=== PATIENT | male | born 1990 | race Two or more races ===

== ENCOUNTER 2018-03-24 17:22 | Inpatient (IN) | payer BC ==
[2018-03-24 18:50] VITALS: BMI 22.4
--- NOTE | 2018-03-24 19:09 | HP ---
"COWS - Scale Resting Pulse: 4= [place] > 121 Sweatin= Beads of Sweat on Face Restless Observation: 3= Extraneous Movement Pupil Size: 5= Only Rim of Iris Seen (Pupils = 10 mm) Bone or Joint Aches: 2= Severe Diffuse Aches Runny Nose/ Eye Tearin= Nasal Congestion GI Upset > 30mins: 2= Nausea/Diarrhea (No diarrhea) Tremor Observation: 4= Gross Tremor/Twitching Yawning Observation: 0= None Anxiety or Irritability: 1=Feels Anxious/Irritable Goose Flesh Skin: 0=Smooth Skin COWS Score: 25 CIWA Score - Admission Criteria OASAS Guidelines: Admission for Medically Managed Detox: Requires at least one of the followin. CIWA greater than 12 2. Seizures within the past 24 hours 3. Delirium tremens within the past 24 hours 4. Hallucinations within the past 24 hours 5. Acute intervention needed for co occurring medical disorder 6. Acute intervention needed for co occurring psychiatric disorder 7. Severe withdrawal that cannot be handled at a lower level of care (continued vomiting, continued diarrhea, abnormal vital signs) requiring intravenous medication and/or fluids 8. Admission ROS [facility] - [facility] Chief Complaint: Having bad opiate withdrawals. Allergies/Adverse Reactions: Allergies Allergy/AdvReac Type Severity Reaction Status Date / Time No Known Allergies Allergy Verified 02/28/15 16:35 History of Present Illness: Here for oxycontin detox and c/o experiencing bad withdrawal symptoms. Stated taking oxy 2 years at age 26. Nicotine use began at age 23. Seen at [facility] ER, for Hallucinations, on03/23 and given methadone , Ativan, Atrovent, albuterol, Risperidone, catapress, Haldol, Benadryl, Rocephin, Zithromax and imodium. Discharged 03/24. Discharge papers w/o list of home medications. Denies seizures or overdose. Longest length of sobriety 3 days. Hx: Asthma. Denies other significant PMH/PSH States is taking Risperidone and cogentin. Denies depression. Denies thoughts of harming self or others. Denies current hallucination. No recent visit to a provider visit. Search Terms: Christian Barraza, 1990 Search Date: 03/24/2018 07:00:18 PM The Drug Utilization Report below displays all of the controlled substance prescriptions, if any, that your patient has filled in the last twelve months. The information displayed on this report is compiled from pharmacy submissions to the Department, and accurately reflects the information as submitted by the pharmacies. This report was requested by: Angelia Alvarez | Reference #: [id number] There are no results for the search terms that you entered. Exam Limitations: No Limitations - Ebola screening Have you traveled outside of the country in the last 21 days: No (N) Have you had contact with anyone from an Ebola affected area: No Have you been sick,other than usual withdrawal symptoms: No Do you have a fever: No - Review of Systems Constitutional: Diaphoresis EENT: reports: Nose Congestion Respiratory: reports: Wheezing Cardiac: reports: No Symptoms Reported GI: reports: Nausea, Vomiting : reports: No Symptoms Reported Musculoskeletal: reports: Other (Body aches all over) Integumentary: reports: No Symptoms Reported Neuro: reports: Tremors Endocrine: reports: No Symptoms Reported Hematology: reports: No Symptoms Reported Psychiatric: reports: Judgement Intact, Orientated x3, Agitated, Anxious Patient History - Patient Medical History Hx Anemia: No Hx Asthma: No Hx Chronic Obstructive Pulmonary Disease (COPD): No Hx Cancer: No Hx Cardiac Disorders: No Hx Congestive Heart Failure: No Hx Hypertension: No Hx Hypercholesterolemia: No Hx Pacemaker: No HX Cerebrovascular Accident: No Hx Seizures: No Hx Dementia: No Hx Diabetes: No Hx Gastrointestinal Disorders: No Hx Liver Disease: No Hx Genitourinary Disorders: No Hx Sexually Transmitted Disorders: No Hx Renal Disease (ESRD): No Hx Thyroid Disease: No Hx Human Immunodeficiency Virus (HIV): No (negative) Hx Hepatitis C: No Hx Depression: Yes Hx Suicide Attempt: No Hx Schizophrenia: No - Patient Surgical History Past Surgical History: No Hx Neurologic Surgery: No Hx Cataract Extraction: No Hx Cardiac Surgery: No Hx Lung Surgery: No Hx Breast Surgery: No Hx Breast Biopsy: No Hx Abdominal Surgery: No Hx Appendectomy: No Hx Cholecystectomy: No Hx Genitourinary Surgery: No Hx Section: No Hx Orthopedic Surgery: No Anesthesia Reaction: No - PPD History Previous Implant?: Yes Documented Results: Negative w/proof Implanted On Prior R Admission?: Yes Date: 03/02/15 PPD to be Administered?: Yes - Smoking Cessation Smoking history: Current every day smoker Have you smoked in the past 12 months: Yes Aproximately how many cigarettes per day: 8 Hx Chewing Tobacco Use: No Initiated information on smoking cessation: Yes 'Breaking Loose' booklet given: 03/24/18 - Substance & Tx. History Hx Substance Use: Yes Substance Use Type: Opiates Hx Substance Use Treatment: Yes (detox, rehab) - Substances Abused Oxycontin Route: Oral Frequency: Daily Amount used: 3/30MG Age of first use: 26 Date of Last Use: 03/24/18 Admission Physical Exam [facility] - Vital Signs Vital Signs: Vital Signs - 24 hr 03/24/18 18:48 Temperature 96.2 F L Pulse Rate 125 H Respiratory 18 Rate Blood Pressure 153/78 - Physical General Appearance: Yes: Moderate Distress, Tremorous, Sweating, Anxious HEENTM: Yes: EOMI, Hearing grossly Normal, Normocephalic, IONA (Pupils = 10 mm) , Pharynx Normal, Nasal Congestion Respiratory: Yes: Chest Non-Tender, Lungs Clear, Normal Breath Sounds, No Respiratory Distress Neck: Yes: No masses,lesions,Nodules, Supple Breast: Yes: Breast Exam Deferred Cardiology: Yes: Regular Rhythm, S1, S2, Tachycardia Abdominal: Yes: Soft, Increased Bowel Sounds, Tenderness (Mid abd tenderness upon palpation. No guarding. 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, Fully Oriented, Alert, Motor Strength 5/5 Integumentary: Yes: Normal Color, Dry, Warm Lymphatic: Yes: Within Normal Limits - Diagnostic (1) Opioid dependence with withdrawal Current Visit: Yes Status: Acute Comment: COWS (2) Nicotine dependence Current Visit: Yes Status: Chronic Qualifiers: Nicotine product type: cigarettes Substance use status: uncomplicated Qualified Code(s): F17.210 - Nicotine dependence, cigarettes, uncomplicated (3) Asthma Current Visit: Yes Status: Chronic Qualifiers: Asthma severity: unspecified severity Asthma persistence: intermittent Asthma complication type: unspecified Qualified Code(s): J45.20 - Mild intermittent asthma, uncomplicated Cleared for Admission [facility] - Detox or Rehab [facility] Level of Care: Medically Managed Detox Regimen/Protocol: Methadone [facility]HS Breath Alcohol Content Breath Alcohol Content: 0 Urine Drug Screen - Results Drug Screen Negative: No Urine Drug Screen Results: OPI-Opiates, BZO-Benzodiazepines, MTD-Methadone"
[2018-03-24] MEDS ORDERED: ACETAMINOPHEN 325 MG TABLET (FP) PO PRN (19:39)
[2018-03-24] MEDS ORDERED: MAGNESIUM CITRATE 300 ML BOTTLE PO PRN (19:39)
[2018-03-24] MEDS ORDERED: LOPERAMIDE HCL 2 MG CAPSULE PO PRN (19:39)
[2018-03-24] MEDS ORDERED: MAGNESIUM HYDROX 2400MG/30ML ORAL SUSPENSION 30 ML CUP PO PRN (19:39)
[2018-03-24] MEDS ORDERED: MAG HYDROX/AL HYDROX/SIMETH 30 ML UNIT-DOSE CUP PO PRN (19:39)
[2018-03-24] MEDS ORDERED: IBUPROFEN 400 MG TABLET (FP) PO PRN (19:39)
[2018-03-24] MEDS ORDERED: MENTHOL/PHENOL 1 EACH UD MM PRN (19:39)
[2018-03-24] MEDS ORDERED: NICOTINE POLACRILEX 2 MG GUM BUC PRN (19:42)
[2018-03-24] MEDS ORDERED: METHADONE HCL 10 MG TABLET (FOR DETOX USE ONLY) PO ONE ×2 (20:30→23:00)
[2018-03-24] MEDS: diazePAM 5 MG TABLET PO PRN (21:08)
[2018-03-24] MEDS: THIAMINE HCL 100 MG TABLET (FP) PO SCH (21:50)
[2018-03-24] MEDS ORDERED: MELATONIN 5 MG TABLETS PO PRN (22:00)
[2018-03-24] MEDS ORDERED: ALBUTEROL SO4 8 GM HFA INHALER IH ONE (23:51)
[2018-03-24] MEDS: ALBUTEROL SO4 8 GM HFA INHALER IH PRN (23:55)
[2018-03-25] MEDS ORDERED: METHADONE HCL 10 MG TABLET (FOR DETOX USE ONLY) PO ONE (10:00)
[2018-03-25 10:46] LABS: ALBUMIN 3.6 g/dl (3.4-5.0); ALK PHOS 72 U/L (45-117); ANION GAP 9 MMOL/L (8-16); BILIRUBIN,TOTAL 0.5 mg/dL (0.2-1); BLOOD UREA NITROGEN 30 mg/dL (7-18); CALCIUM 9.4 mg/dL (8.5-10.1); CHLORIDE 103 mmol/L (98-107); CO2 25 mmol/L (21-32); GLUCOSE,RANDOM 112 mg/dL (74-106); HEMOGLOBIN 14.2 GM/dL (11.7-16.9); POTASSIUM 4.2 mmol/L (3.5-5.1); SGOT/AST 13 U/L (15-37); SGPT/ALT 19 U/L (13-61); SODIUM 137 mmol/L (136-145); TOT PROT 7.1 g/dl (6.4-8.2)
[2018-03-25 10:52] LABS: HEMATOCRIT 44.6 % (35.4-49); MCH 28.4 pg (25.7-33.7); MCHC 31.9 g/dl (32.0-35.9); PLATELET COUNT 297 K/MM3 (134-434); RBC 5.01 M/mm3 (4.00-5.60); RDW 15.6 % (11.9-15.9); WHITE BLOOD COUNT 11.1 K/mm3 (4.0-10.0)
[2018-03-25] MEDS: diazePAM 5 MG TABLET PO PRN ×3 (10:52→22:34)
[2018-03-25] MEDS: PRENATAL VITAMINS W/ FOLIC ACID TABLET (FP) PO SCH (10:52)
[2018-03-25] MEDS: NICOTINE 14 MG/24 HOURS TOPICAL PATCH TD SCH (10:54)
--- NOTE | 2018-03-25 11:39 | PN ---
[facility] COWS - Scale Resting Pulse: 1= [place] 81-100 Sweatin=Flushed/Facial Moisture Restless Observation: 1= Difficult to Sit Still Pupil Size: 1= Pupils >than Normal Bone or Joint Aches: 2= Severe Diffuse Aches Runny Nose/ Eye Tearin= Nasal Congestion GI Upset > 30mins: 2= Nausea/Diarrhea Tremor Observation of Outstretched Hands: 2= Slight Tremor Visible Yawning Observation: 0= None Anxiety or Irritability: 2=Irritable/Anxious Goose Flesh Skin: 0=Smooth Skin COWS Score: 14 BHS Progress Note (SOAP) Subjective: Sweats, chills, interrupted sleep, irritability Objective: 03/25/18 11:37 Vital Signs Temperature 96.3 F L 03/25/18 09:58 Pulse Rate 107 H 03/25/18 09:58 Respiratory Rate 18 03/25/18 09:58 Blood Pressure 135/95 03/25/18 09:58 O2 Sat by Pulse Oximetry (%) Laboratory Last Values WBC 11.1 K/mm3 (4.0-10.0) H 03/25/18 07:40 RBC 5.01 M/mm3 (4.00-5.60) 03/25/18 07:40 Hgb 14.2 GM/dL (11.7-16.9) 03/25/18 07:40 Hct 44.6 % (35.4-49) 03/25/18 07:40 MCV 89.0 fl (80-96) 03/25/18 07:40 MCH 28.4 pg (25.7-33.7) 03/25/18 07:40 MCHC 31.9 g/dl (32.0-35.9) L 03/25/18 07:40 RDW 15.6 % (11.9-15.9) D 03/25/18 07:40 Plt Count 297 K/MM3 (134-434) D 03/25/18 07:40 MPV 10.0 fl (7.5-11.1) 03/25/18 07:40 Sodium 137 mmol/L (136-145) 03/25/18 07:40 Potassium 4.2 mmol/L (3.5-5.1) 03/25/18 07:40 Chloride 103 mmol/L (98-107) 03/25/18 07:40 Carbon Dioxide 25 mmol/L (21-32) 03/25/18 07:40 Anion Gap 9 MMOL/L (8-16) 03/25/18 07:40 BUN 30 mg/dL (7-18) H 03/25/18 07:40 Creatinine 1.0 mg/dL (0.55-1.3) 03/25/18 07:40 Creat Clearance w eGFR > 60 (>60) 03/25/18 07:40 Random Glucose 112 mg/dL (74-106) H 03/25/18 07:40 Calcium 9.4 mg/dL (8.5-10.1) 03/25/18 07:40 Total Bilirubin 0.5 mg/dL (0.2-1) 03/25/18 07:40 AST 13 U/L (15-37) L 03/25/18 07:40 ALT 19 U/L (13-61) 03/25/18 07:40 Alkaline Phosphatase 72 U/L (45-117) 03/25/18 07:40 Total Protein 7.1 g/dl (6.4-8.2) 03/25/18 07:40 Albumin 3.6 g/dl (3.4-5.0) 03/25/18 07:40 Labs noted; elevated BUN, creatinine within normal limits Assessment: 03/25/18 11:38 Withdrawal sx Elevated BUN probably due to dehydration Plan: Continue detox Encourage oral fluid intake
[2018-03-25] MEDS: THIAMINE HCL 100 MG TABLET (FP) PO SCH (22:34)
[2018-03-26] MEDS: diazePAM 5 MG TABLET PO PRN ×2 (03:44→07:53)
[2018-03-26 09:51] VITALS: BP 111/69; PULSE 104; TEMP 97.6
[2018-03-26] MEDS ORDERED: METHADONE HCL 5 MG TABLET (FOR DETOX USE ONLY) PO ONE (10:00)
[2018-03-26] MEDS: PRENATAL VITAMINS W/ FOLIC ACID TABLET (FP) PO SCH (10:27)
[2018-03-26] MEDS: NICOTINE 14 MG/24 HOURS TOPICAL PATCH TD SCH (10:28)
[2018-03-26] MEDS: ALBUTEROL SO4 8 GM HFA INHALER IH PRN (10:30)
--- NOTE | 2018-03-26 13:34 | DS ---
[facility] Detox Discharge Summary Admission Date: 03/24/18 Discharge Date: 03/26/18 - History Present History: Opioid Dependence Additional Comments: Patient demanded to leave AMA despite encouragement from staff to complete detox. Patient is A, A, Ox3, in nad, vss, ambulatory. Patient instructed to call 911 if feeling sick or any withdrawal symptoms and to see his PCP within 3 days. Patient stated that he is feeling better now and wants to leave and that he will not be using any illicit substances after he left. Pertinent Past History: Opioid dependence Nicotine dependence Asthma - Physical Exam Results Vital Signs: Vital Signs Temperature 97.6 F 03/26/18 09:51 Pulse Rate 104 H 03/26/18 09:51 Respiratory Rate 18 03/26/18 09:51 Blood Pressure 111/69 03/26/18 09:51 O2 Sat by Pulse Oximetry (%) Pertinent Admission Physical Exam Findings: Withdrawal symptoms Laboratory Tests 03/25/18 03/25/18 03/25/18 07:40 07:40 07:40 WBC 11.1 H RBC 5.01 Hgb 14.2 Hct 44.6 MCV 89.0 MCH 28.4 MCHC 31.9 L RDW 15.6 D Plt Count 297 D MPV 10.0 Sodium 137 Potassium 4.2 Chloride 103 Carbon Dioxide 25 Anion Gap 9 BUN 30 H Creatinine 1.0 Creat Clearance w eGFR > 60 Random Glucose 112 H Calcium 9.4 Total Bilirubin 0.5 AST 13 L ALT 19 Alkaline Phosphatase 72 Total Protein 7.1 Albumin 3.6 RPR Titer Nonreactive Labs reviewed: wbc 11.1, bun 30; encouraged PO water intake and to see his PCP within 3 days - Medication Discharge Medications: Ambulatory Orders Benztropine Mesylate [Cogentin -] 1 mg PO BID 02/28/15 Risperidone [Risperdal] 2 mg PO HS 02/28/15 Benztropine Mesylate [Cogentin -] 1 mg PO BID #60 tablet 03/24/15 Risperidone [Risperdal -] 2 mg PO HS #60 tablet 03/24/15 - Diagnosis (1) Opioid dependence with withdrawal Status: Acute (2) Asthma Status: Chronic Qualifiers: Asthma severity: unspecified severity Asthma persistence: intermittent Asthma complication type: unspecified Qualified Code(s): J45.20 - Mild intermittent asthma, uncomplicated (3) Nicotine dependence Status: Chronic Qualifiers: Nicotine product type: cigarettes Substance use status: uncomplicated Qualified Code(s): F17.210 - Nicotine dependence, cigarettes, uncomplicated (4) Azotemia Status: Acute (5) Leukocytosis Status: Acute - AMA Did Patient Leave Against Medical Advice: Yes (Instructed to call 911 if feeling sick or any withdrawal symptoms)
[2018-03-27] MEDS ORDERED: METHADONE HCL 5 MG TABLET (FOR DETOX USE ONLY) PO ONE (10:00)
[2018-03-28] MEDS ORDERED: METHADONE HCL 10 MG TABLET (FOR DETOX USE ONLY) PO ONE (10:00)
[2018-03-29] MEDS ORDERED: METHADONE HCL 5 MG TABLET (FOR DETOX USE ONLY) PO ONE (06:00)
== END 2018-03-26 11:05 | disposition left against medical advice (07) | DRG 770 ==
LOC: YASAS 17:22 → Y3N 20:01
PROC: HZ2ZZZZ Detoxification Services for Substance Abuse Treatment (ICD-10-PCS; principal; 2018-03-24)
DX: F11.23 Opioid dependence with withdrawal (principal); F17.210 Nicotine dependence, cigarettes, uncomplicated; F41.1 Generalized anxiety disorder; F41.9 Anxiety disorder, unspecified; J45.20 Mild intermittent asthma, uncomplicated; R79.89 Other specified abnormal findings of blood chemistry; R00.0 Tachycardia, unspecified; D72.829 Elevated white blood cell count, unspecified
CPT/HCPCS: 36415; 80053; 85027; 86593

== ENCOUNTER 2019-01-20 08:53 | Inpatient (IN) | payer BC ==
[2019-01-20 09:37] VITALS: BMI 25.2
--- NOTE | 2019-01-20 10:09 | HP ---
COWS - Scale Resting Pulse: 1= [place] 81-100 Sweatin= Chills/Flushing Restless Observation: 1= Difficult to Sit Still Pupil Size: 0= Normal to Room Light Bone or Joint Aches: 2= Severe Diffuse Aches Runny Nose/ Eye Tearin= Runny Nose/Eyes GI Upset > 30mins: 2= Nausea/Diarrhea Tremor Observation: 2= Slight Tremor Visible Yawning Observation: 1= 1-2x During Session Anxiety or Irritability: 1=Feels Anxious/Irritable Goose Flesh Skin: 3=Piloerection COWS Score: 16 CIWA Score - Admission Criteria OASAS Guidelines: Admission for Medically Managed Detox: Requires at least one of the followin. CIWA greater than 12 2. Seizures within the past 24 hours 3. Delirium tremens within the past 24 hours 4. Hallucinations within the past 24 hours 5. Acute intervention needed for co occurring medical disorder 6. Acute intervention needed for co occurring psychiatric disorder 7. Severe withdrawal that cannot be handled at a lower level of care (continued vomiting, continued diarrhea, abnormal vital signs) requiring intravenous medication and/or fluids 8. Admitting History and Physical - Smoking History Smoking history: Current every day smoker Have you smoked in the past 12 months: Yes Aproximately how many cigarettes per day: 8 - Alcohol/Substance Use Hx Alcohol Use: No Admission ROS S - HPI Chief Complaint: "I am here so I can get clean from withdrawal" Allergies/Adverse Reactions: Allergies Allergy/AdvReac Type Severity Reaction Status Date / Time No Known Allergies Allergy Verified 01/20/19 09:29 History of Present Illness: 28 year old male with opiate dependence presents for detox. His last treatment was in March of last year, he denies further treatments. Exam Limitations: No Limitations - Ebola screening Have you traveled outside of the country in the last 21 days: No Have you had contact with anyone from an Ebola affected area: No Have you been sick,other than usual withdrawal symptoms: No Do you have a fever: No - Review of Systems Constitutional: Chills, Loss of Appetite, Changes in sleep, Unintentional Wgt. Loss EENT: reports: Nose Congestion Respiratory: reports: Cough, Shortness of Breath (sometimes) Cardiac: reports: No Symptoms Reported GI: reports: Poor Appetite, Abdominal cramping : reports: No Symptoms Reported Musculoskeletal: reports: Back Pain, Joint Pain, Muscle Pain, Muscle Weakness Integumentary: reports: No Symptoms Reported Neuro: reports: Tremors, Weakness Endocrine: reports: No Symptoms Reported Hematology: reports: No Symptoms Reported Psychiatric: reports: Anxious Other Systems: Reviewed and Negative Patient History - Patient Medical History Hx Anemia: No Hx Asthma: Yes Hx Chronic Obstructive Pulmonary Disease (COPD): No Hx Cancer: No Hx Cardiac Disorders: No Hx Congestive Heart Failure: No Hx Hypertension: No Hx Hypercholesterolemia: No Hx Pacemaker: No HX Cerebrovascular Accident: No Hx Seizures: No Hx Dementia: No Hx Diabetes: No Hx Gastrointestinal Disorders: No Hx Liver Disease: No Hx Genitourinary Disorders: No Hx Sexually Transmitted Disorders: No Hx Renal Disease (ESRD): No Hx Thyroid Disease: No Hx Human Immunodeficiency Virus (HIV): No Hx Hepatitis C: No Hx Depression: No Hx Suicide Attempt: No Hx Bipolar Disorder: No Hx Schizophrenia: No - Patient Surgical History Past Surgical History: No - PPD History Previous Implant?: Yes Documented Results: Negative w/proof Implanted On Prior R Admission?: Yes Date: 03/02/15 PPD to be Administered?: Yes - Smoking Cessation Smoking history: Current every day smoker Have you smoked in the past 12 months: Yes Aproximately how many cigarettes per day: 10 Hx Chewing Tobacco Use: No Initiated information on smoking cessation: Yes 'Breaking Loose' booklet given: 01/20/19 - Substances abused Cocaine Substance route: Inhalation Frequency: Daily Amount used: 3 bags Age of first use: 16 Date of last use: 01/19/19 Other Other (specify): percocet Substance route: Oral Frequency: Daily Amount used: 3 pills Age of first use: 16 Date of last use: 01/19/19 Admission Physical Exam [facility] - Vital Signs Vital Signs: Vital Signs - 24 hr 01/20/19 09:32 Temperature 98.2 F Pulse Rate 95 H Respiratory 20 Rate Blood Pressure 146/98 - Physical General Appearance: Yes: No Apparent Distress HEENTM: Yes: Hearing grossly Normal, Normal ENT Inspection, Normocephalic, Normal Voice, IONA, Nasal Congestion Respiratory: Yes: Chest Non-Tender, Lungs Clear, No Respiratory Distress, No Accessory Muscle Use Neck: Yes: No masses,lesions,Nodules, Supple Breast: Yes: Breast Exam Deferred Cardiology: Yes: Regular Rhythm, Tachycardia Abdominal: Yes: Normal Bowel Sounds, Soft Genitourinary: Yes: Within Normal Limits Back: Yes: Normal Inspection Extremities: Yes: Normal Capillary Refill, Tremors 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, Fully Oriented, Alert, Normal Mood/ Affect, Normal Response Integumentary: Yes: Clammy Lymphatic: Yes: Within Normal Limits - Diagnostic (1) Opioid dependence with withdrawal Current Visit: Yes Status: Acute Comment: COWS (2) Asthma Current Visit: No Status: Chronic Qualifiers: Asthma severity: unspecified severity Asthma persistence: intermittent Asthma complication type: unspecified Qualified Code(s): J45.20 - Mild intermittent asthma, uncomplicated (3) Nicotine dependence Current Visit: Yes Status: Acute Qualifiers: Nicotine product type: cigarettes Substance use status: uncomplicated Qualified Code(s): F17.210 - Nicotine dependence, cigarettes, uncomplicated (4) SUKHDEEP (generalized anxiety disorder) Current Visit: Yes Status: Chronic (5) Cocaine abuse Current Visit: Yes Status: Acute Cleared for Admission [facility] - Detox or Rehab [facility] Level of Care: Medically Managed Detox Regimen/Protocol: Methadone Claeared for Rehab Admission: No Inpatient Rehab Admission - Rehab Decision to Admit Inpatient rehab admission?: No
[2019-01-20] MEDS ORDERED: MAG HYDROX/AL HYDROX/SIMETH 30 ML UNIT-DOSE CUP PO PRN (10:15)
[2019-01-20] MEDS ORDERED: NALOXONE HCL 0.4 MG/ML VIAL IM PRN (10:15)
[2019-01-20] MEDS ORDERED: MAGNESIUM CITRATE 300 ML BOTTLE PO PRN (10:15)
[2019-01-20] MEDS ORDERED: P-EPHED 60MG/TRIPROLIDI 2.5MG TABLET PO PRN (10:15)
[2019-01-20] MEDS ORDERED: IBUPROFEN 400 MG TABLET (FP) PO PRN (10:15)
[2019-01-20] MEDS ORDERED: MAGNESIUM HYDROX 2400MG/30ML ORAL SUSPENSION 30 ML CUP PO PRN (10:15)
[2019-01-20] MEDS ORDERED: ONDANSETRON *ODT* 4 MG TABLET SL PRN (10:15)
[2019-01-20] MEDS ORDERED: cloNIDine HCL 0.1 MG TABLET PO PRN (10:15)
[2019-01-20] MEDS ORDERED: MENTHOL/PHENOL 1 EACH UD MM PRN (10:15)
[2019-01-20] MEDS ORDERED: ACETAMINOPHEN 325 MG TABLET (FP) PO PRN ×2 (10:15)
[2019-01-20] MEDS ORDERED: NICOTINE POLACRILEX 2 MG GUM BUC PRN (10:15)
[2019-01-20] MEDS ORDERED: METHADONE HCL 10 MG TABLET (FOR DETOX USE ONLY) PO ONE (10:45)
[2019-01-20] MEDS: NICOTINE 7 MG/24 HOURS TOPICAL PATCH TD SCH (11:14)
[2019-01-20] MEDS ORDERED: FLU VACCINE QUAD 60 MCG/0.5 ML (MDV 19-20) IM ONE (12:00)
[2019-01-20] MEDS: METHOCARBAMOL 500 MG TABLET PO PRN (16:51)
[2019-01-20] MEDS: THIAMINE HCL 100 MG TABLET (FP) PO SCH (21:53)
[2019-01-20] MEDS: MELATONIN 5 MG TABLETS PO PRN (21:53)
[2019-01-20] MEDS: hydrOXYzine PAMOATE 50 MG CAPSULE (FP) PO PRN (21:53)
--- NOTE | 2019-01-21 07:34 | CONSULT ---
[facility] Psychiatric Consult - Data Date of interview: 01/21/19 Admission source: [facility] Identifying data: Patient is a 28 year old single male, without children, unemployed, and currently homeless. This is one of multiple admissions for patient. Patient admitted to for cocaine and opiate dependence. Substance Abuse History: Smoking Cessation. Smoking history: Current every day smoker. Have you smoked in the past 12 months: Yes. Aproximately how many cigarettes per day: 10. Hx Chewing Tobacco Use: No. Initiated information on smoking cessation: Yes. 'Breaking Loose' booklet given: 01/20/19. - Substances abused. Cocaine. Substance route: Inhalation. Frequency: Daily. Amount used: 3 bags. Age of first use: 16. Date of last use: . Other. Other (specify): percocet. Substance route: Oral. Frequency: Daily. Amount used: 3 pills. Age of first use: 16. Date of last use: 01/19/19 Medical History: Asthma Psychiatric History: Patient's first psychiatric contact was at 5 years of age due to hyperactivity and was treated with Ritalin. Mr. Barraza reports history of multiple psychiatric hospitalizations, most recently three months ago at [facility] due to auditory hallucinations. Before his admission to [facility] patient stated that the voices would tell him, " stay away from those people because they are dangerous." Patient denies command auditory hallucinations to hurt self or others. Patient is also known to [facility] and [facility]. Patient unsure of his diagnosis and past medication regiman but as per previous notes patient has a history of schizophrenia and was prescribed risperdal 2mg HS + Cogentin 1mg BID while in rehab in 2014. External records show a prescription of risperdal 2mg BID + Cogentin 1mg BID + Depakote 500mg BID on 02/21/18. Patient is noncompliant to follow up care. Patient observed to be staring blankly at manual writer before answering questions (possibly internally preoccupied although denied by patient) . Patient denies history of suicide attempt. At present, patient denies auditory/visual hallucinations, paranoid ideation, and suicide/homicidal ideation. Physical/Sexual Abuse/Trauma History: denies. Mental Status Exam - Mental Status Exam Alert and Oriented to: Time, Place, Person Cognitive Function: Good Patient Appearance: Unkempt Mood: Withdrawn Affect: Flat, Constricted Patient Behavior: Cooperative Speech Pattern: Clear Voice Loudness: Normal Thought Process: Thought Blocking (Possibly internally preoccupied but denied by patient) Thought Disorder: Not Present Hallucinations: Denies Suicidal Ideation: Denies Homicidal Ideation: Denies Insight/Judgement: Poor Sleep: Poorly Appetite: Fair Muscle strength/Tone: Normal Gait/Station: Normal Psychiatric Findings - Problem List ([place] 1, 2,3) (1) Cocaine abuse Current Visit: Yes Status: Acute (2) Nicotine dependence Current Visit: Yes Status: Resolved Qualifiers: Nicotine product type: cigarettes Substance use status: uncomplicated Qualified Code(s): F17.210 - Nicotine dependence, cigarettes, uncomplicated (3) Opioid dependence with withdrawal Current Visit: Yes Status: Acute Comment: COWS (4) Schizophrenia Current Visit: Yes Status: Chronic - Initial Treatment Plan Initial Treatment Plan: Psychoeducation provided. Detoxification in progress. Will order Risperdal 1mg BID + Cogentin 0.5 mg BID. Benefits and side effects discussed. Verbal consent given.
[2019-01-21] MEDS ORDERED: METHADONE HCL 5 MG TABLET (FOR DETOX USE ONLY) PO ONE (10:00)
--- NOTE | 2019-01-21 10:13 | PN ---
[facility] COWS - Scale Resting Pulse: 0= [place] 80 or Below Sweatin= Chills/Flushing Restless Observation: 1= Difficult to Sit Still Pupil Size: 0= Normal to Room Light Bone or Joint Aches: 2= Severe Diffuse Aches Runny Nose/ Eye Tearin= None GI Upset > 30mins: 2= Nausea/Diarrhea Tremor Observation of Outstretched Hands: 2= Slight Tremor Visible Yawning Observation: 1= 1-2x During Session Anxiety or Irritability: 2=Irritable/Anxious Goose Flesh Skin: 0=Smooth Skin COWS Score: 11 S Progress Note (SOAP) Subjective: c/o muscle aches, diarrhea, sweats, headache, anxiety, and irritability. Objective: 01/21/19 10:12 Vital Signs 01/21/19 01/21/19 06:17 09:19 Temperature 96.7 F L 96.5 F L Pulse Rate 58 L 79 Respiratory 16 18 Rate Blood Pressure 111/63 121/91 Labs pending. Assessment: 01/21/19 10:13 AOX3, in no respiratory distress. Full ROM, ambulating in the unit. Withdrawal symptoms. Plan: continue detox.
[2019-01-21 10:23] LABS: ALBUMIN 3.7 g/dl (3.4-5.0); BILIRUBIN,TOTAL 0.3 mg/dL (0.2-1); BLOOD UREA NITROGEN 9.3 mg/dL (7-18); CALCIUM 9.1 mg/dL (8.5-10.1); CREATININE 0.7 mg/dL (0.55-1.3); POTASSIUM 4.2 mmol/L (3.5-5.1); TOT PROT 6.5 g/dl (6.4-8.2)
[2019-01-21 10:27] LABS: HEMATOCRIT 39.2 % (35.4-49); HEMOGLOBIN 13.2 GM/dL (11.7-16.9); MCH 30.3 pg (25.7-33.7); MCHC 33.8 g/dl (32.0-35.9); MEAN CELL VOLUME 89.8 fl (80-96); MEAN PLT VOLUME 12.3 fl (7.5-11.1); PLATELET COUNT 164 K/MM3 (134-434); RBC 4.36 M/mm3 (4.00-5.60); RDW 13.7 % (11.9-15.9); WHITE BLOOD COUNT 8.7 K/mm3 (4.0-10.0)
[2019-01-21] MEDS: PRENATAL VITAMINS W/ FOLIC ACID TABLET (FP) PO SCH (10:27)
[2019-01-21] MEDS: BENZTROPINE MESYLATE 1 MG TABLET (FP) PO SCH ×2 (10:28→21:25)
[2019-01-21] MEDS: risperiDONE 2 MG TABLET PO SCH ×2 (10:28→21:26)
[2019-01-21] MEDS: NICOTINE 7 MG/24 HOURS TOPICAL PATCH TD SCH (10:29)
[2019-01-21] MEDS: THIAMINE HCL 100 MG TABLET (FP) PO SCH (21:26)
[2019-01-21] MEDS: hydrOXYzine PAMOATE 50 MG CAPSULE (FP) PO PRN (21:29)
[2019-01-21] MEDS: BISMUTH SUBSALICYLATE 524 MG/30 ML UD PO PRN (21:30)
[2019-01-22] MEDS: METHOCARBAMOL 500 MG TABLET PO PRN (06:37)
[2019-01-22] MEDS: hydrOXYzine PAMOATE 50 MG CAPSULE (FP) PO PRN (06:38)
[2019-01-22] MEDS ORDERED: METHADONE HCL 10 MG TABLET (FOR DETOX USE ONLY) PO ONE (10:00)
[2019-01-22] MEDS: NICOTINE 7 MG/24 HOURS TOPICAL PATCH TD SCH (10:11)
[2019-01-22] MEDS: risperiDONE 2 MG TABLET PO SCH ×2 (10:11→22:09)
[2019-01-22] MEDS: BENZTROPINE MESYLATE 1 MG TABLET (FP) PO SCH ×2 (10:11→22:08)
[2019-01-22] MEDS: PRENATAL VITAMINS W/ FOLIC ACID TABLET (FP) PO SCH (10:11)
[2019-01-22] MEDS: BISMUTH SUBSALICYLATE 524 MG/30 ML UD PO PRN (10:12)
--- NOTE | 2019-01-22 13:06 | EKG ---
Test Reason : Blood Pressure : / mmHG Vent. Rate : 082 BPM Atrial Rate : 082 BPM P-R Int : 130 ms QRS Dur : 076 ms QT Int : 362 ms P-R-T Axes : 047 030 032 degrees QTc Int : 422 ms NORMAL SINUS RHYTHM NORMAL ECG NO PREVIOUS ECGS AVAILABLE Confirmed by BRANDYN HUI MD ([id number]) on 01/22/2019 1:06:24 PM Referred By: Confirmed By:BRANDYN HUI MD
[2019-01-22] MEDS ORDERED: LOPERAMIDE HCL 2 MG CAPSULE PO PRN (14:45)
--- NOTE | 2019-01-22 14:51 | PN ---
[facility] CIWA - CIWA Score Nausea/Vomitin-No Nausea/No Vomiting Muscle Tremors: None Anxiety: 4-Mod. Anxious/Guarded Agitation: 2 Paroxysmal Sweats: 3 Orientation: 0-Oriented Tacttile Disturbances: 0-None Auditory Disturbances: 0-None Visual Disturbances: 1-Very Mild Sensitivity Headache: 0-None Present CIWA-Ar Total Score: 10 S Progress Note (SOAP) Subjective: Anxious, Guarded, Tremors, Chills, Sweating. Objective: PATIENT A & O X 3, OBSERVED AMBULATING ON DETOX UNIT UNASSISTED. IN NO ACUTE DISTRESS. 01/22/19 14:48 Vital Signs Temperature 97.5 F L 01/22/19 13:05 Pulse Rate 103 H 01/22/19 13:05 Respiratory Rate 16 01/22/19 13:05 Blood Pressure 118/77 01/22/19 13:05 O2 Sat by Pulse Oximetry (%) Laboratory Tests 01/21/19 01/21/19 01/21/19 07:15 07:15 07:15 WBC 8.7 RBC 4.36 Hgb 13.2 Hct 39.2 MCV 89.8 MCH 30.3 MCHC 33.8 RDW 13.7 D Plt Count 164 D MPV 12.3 H D Sodium 143 Potassium 4.2 Chloride 111 H Carbon Dioxide 25 Anion Gap 6 L BUN 9.3 Creatinine 0.7 Est GFR (CKD-EPI)AfAm 146.77 Est GFR (CKD-EPI)NonAf 126.64 Random Glucose 93 Calcium 9.1 Total Bilirubin 0.3 AST 11 L ALT 23 Alkaline Phosphatase 75 Total Protein 6.5 Albumin 3.7 RPR Titer HIV 1&2 Antibody Screen Negative HIV P24 Antigen Negative 01/21/19 07:15 WBC RBC Hgb Hct MCV MCH MCHC RDW Plt Count MPV Sodium Potassium Chloride Carbon Dioxide Anion Gap BUN Creatinine Est GFR (CKD-EPI)AfAm Est GFR (CKD-EPI)NonAf Random Glucose Calcium Total Bilirubin AST ALT Alkaline Phosphatase Total Protein Albumin RPR Titer Nonreactive HIV 1&2 Antibody Screen HIV P24 Antigen LABS NOTED. Assessment: 01/22/19 14:48 WITHDRAWAL SYMPTOMS. Plan: CONTINUE DETOX. INCREASE DAILY PO WATER INTAKE. PATIENT REPORTS POOR EFFECT FROM PRN PETO-BISMOL PO FOR RELIEF OF DIARRHEA. CHANGE TO PRN IMODIUM PO. PATIENT SCHEDULED FOR D/C FROM DETOX UNIT TOMORROW.
[2019-01-22] MEDS: THIAMINE HCL 100 MG TABLET (FP) PO SCH (22:08)
[2019-01-22] MEDS: MELATONIN 5 MG TABLETS PO PRN (22:09)
[2019-01-23] MEDS: METHOCARBAMOL 500 MG TABLET PO PRN (03:40)
[2019-01-23] MEDS: hydrOXYzine PAMOATE 50 MG CAPSULE (FP) PO PRN (03:41)
[2019-01-23] MEDS ORDERED: METHADONE HCL 5 MG TABLET (FOR DETOX USE ONLY) PO ONE (06:00)
--- NOTE | 2019-01-23 08:45 | DS ---
[facility] Detox Discharge Summary Admission Date: 01/20/19 Discharge Date: 01/23/19 - History Present History: Cocaine Dependence, Opioid Dependence - Physical Exam Results Vital Signs: Vital Signs Temperature 97.1 F L 01/23/19 06:01 Pulse Rate 56 L 01/23/19 06:01 Respiratory Rate 18 01/23/19 06:01 Blood Pressure 106/59 L 01/23/19 06:01 O2 Sat by Pulse Oximetry (%) - Treatment Hospital Course: Detox Protocol Followed, Detoxed Safely, Responded well, Discharged Condition Good, Rehab Referral Accepted Patient has Accepted a Rehab Referral to: [facility] - Medication Discharge Medications: Ambulatory Orders Risperidone [Risperdal] 2 mg PO HS 02/28/15 Benztropine Mesylate [Cogentin -] 1 mg PO BID #60 tablet 03/24/15 - Diagnosis (1) Cocaine abuse Current Visit: Yes Status: Chronic (2) Opioid dependence with withdrawal Current Visit: Yes Status: Chronic (3) Schizophrenia Current Visit: Yes Status: Chronic (4) Asthma Current Visit: No Status: Chronic Qualifiers: Asthma severity: unspecified severity Asthma persistence: intermittent Asthma complication type: unspecified Qualified Code(s): J45.20 - Mild intermittent asthma, uncomplicated - AMA Did Patient Leave Against Medical Advice: No
[2019-01-23 09:16] VITALS: BP 121/82; PULSE 84; TEMP 96.8
[2019-01-23] MEDS: risperiDONE 2 MG TABLET PO SCH (10:04)
[2019-01-23] MEDS: NICOTINE 7 MG/24 HOURS TOPICAL PATCH TD SCH (10:04)
[2019-01-23] MEDS: PRENATAL VITAMINS W/ FOLIC ACID TABLET (FP) PO SCH (10:04)
[2019-01-23] MEDS: BENZTROPINE MESYLATE 1 MG TABLET (FP) PO SCH (10:05)
== END 2019-01-23 11:31 | disposition home or self-care (01) | DRG 773 ==
LOC: YASAS 08:53 → Y3N 10:27
PROVIDERS: ADMIT Allergy & Immunology; ATTEND Allergy & Immunology
PROC: HZ2ZZZZ Detoxification Services for Substance Abuse Treatment (ICD-10-PCS; principal; 2019-01-20)
DX: F11.23 Opioid dependence with withdrawal (principal); F14.20 Cocaine dependence, uncomplicated; F17.210 Nicotine dependence, cigarettes, uncomplicated; F20.9 Schizophrenia, unspecified; F41.1 Generalized anxiety disorder; J45.20 Mild intermittent asthma, uncomplicated
CPT/HCPCS: 36415; 80053; 85027; 86593; 87389; 93005; 93010; J0735; Q2036

== ENCOUNTER 2019-12-24 23:06 | Inpatient (IN) | payer OTHER ==
--- OUTSIDE RECORDS SUMMARY | 2019-12-24 23:12 | XMS ---
:1990 Author Organization [facility] RHIO Care Team Providers Name Role Phone HUNG SWEET MD Unavailable Unavailable MD MARCY Unavailable Unavailable Re-disclosure Warning The records that you are about to access may contain information from federally- assisted alcohol or drug abuse programs. If such information is present, then the following federally mandated warning applies: This information has been disclosed to you from records protected by federal confidentiality rules (42 CFR part 2). The federal rules prohibit you from making any further disclosure of this information unless further disclosure is expressly permitted by the written consent of the person to whom it pertains or as otherwise permitted by 42 CFR part 2. A general authorization for the release of medical or other information is NOT sufficient for this purpose. The Federal rules restrict any use of the information to criminally investigate or prosecute any alcohol or drug abuse patient.The records that you are about to access may contain highly sensitive health information, the redisclosure of which is protected by Article 27-F of the [facility] Public Health law. If you continue you may haveaccess to information: Regarding HIV / AIDS; Provided by facilities licensed or operated by the [facility] Office of Mental Health; or Provided by the [facility] Office for People With Developmental Disabilities. If such information is present, then the following [facility] mandated warning applies: This information has been disclosed to you from confidential records which are protected by state law. State law prohibits you from making any further disclosure of this information without the specific written consent of the person to whom it pertains, or as otherwise permitted by law. Any unauthorized further disclosure in violation of state law may result in a fine or longterm sentence or both. A general authorization for the release of medical or other information is NOT sufficient authorization for further disclosure. Encounters Encounter Providers Location Date Indications Data Source(s ) Inpatient Attender: HUNG BAKER-1D 01/23/2019 [facility] 12:33:00 PM EDT [facility] 10:30:00 PM EDT Patient discharged. Outpatient [facility] 01/23/2019 10:57:00 AM EDT - 019 [facility] 01:54:00 PM EDT Patient discharged. Medications Medication Brand Start Product Dose Route Administrative Pharmacy [facility] Indications Reaction Description Data Name Date Form Instructions Instructions Source(s) Risperidone Risper ORAL complet Risper ZANDER - [facility] 2 MG Oral ZANDER - 2018 Table ed 2 MG ORAL [facility] cents Tablet 2 MG 12:00: t Tablet Hospital [Risperdal] ORAL 00 AM Tablet EDT Trazodone traZOD ORAL complet traZODon e [facility] Hydrochlori one 2018 Table ed hydrochlorid [facility] MG hydroc 12:00: t e - 100 MG Hospital Oral Tablet hlorid 00 AM ORAL Table t e - EDT 100 MG ORAL Tablet Risperidone Risper ORAL complet Risper ZANDER - [facility] 1 MG Oral ZANDER 2018 Table ed 1 MG ORAL [facility] cents Tablet 1 MG 12:00: t Tablet Hospital [Risperdal] ORAL 00 AM Tablet EDT benztropine Benztr ORAL complet Benztr opine [facility] mesylate opine 2018 Table ed Mesylate - [facility] cents 0.5 MG Oral Mesyla 12:00: t 0.5 MG OR AL Hospital Tablet te - 00 AM Tablet 0.5 MG EDT ORAL Tablet Insurance Providers Payer name Policy type Policy ID Covered Covered green party's Policy P sami / Coverage green party ID relationship to Bender Inf ormation type bender SELF PAY SP INSURANCE [facility] [id number] HEALTHPLUS 72 SELF PAY 0000 Self 0000 MEDICAID INP [id number] Self [id number] K REHAB [facility] EMPIRE [id number] Self [id number] [facility] [id number] HEALTHPLUS 72 Problems, Conditions, and Diagnoses Code Display Name Description Problem Type Effective Data Sour ce(s) Dates F104.30 Opioid dependence, Opioid dependence, Diagnosis 9 [facility] uncomplicated uncomplicated 12:48:00 PM Hospita l EDT Vital Signs ID Date Data Source UNK Name Value Range Interpretation Code Description Data Source(s) Diastolic blood 95 mmHg 95 mmHg [facility] Systolic blood 148 mmHg 148 mmHg [facility] Respiratory rate 18 bpm 18 bpm [facility] Heart rate 114 bpm 114 bpm [facility] Body temperature 97.9 Fahrenheit 97.9 [facility] Diastolic blood 82 mmHg 82 mmHg [facility] Systolic blood 135 mmHg 135 mmHg [facility] Respiratory rate 18 bpm 18 bpm [facility] Heart rate 76 bpm 76 bpm [facility] Diastolic blood 82 mmHg 82 mmHg [facility] Systolic blood 135 mmHg 135 mmHg [facility] Respiratory rate 18 bpm 18 bpm [facility] Heart rate 76 bpm 76 bpm [facility] Body temperature 97.9 Fahrenheit 97.9 [facility] Diastolic blood 89 mmHg 89 mmHg [facility] Systolic blood 137 mmHg 137 mmHg [facility] Respiratory rate 18 bpm 18 bpm [facility] Heart rate 80 bpm 80 bpm [facility]
[2019-12-24 23:32] VITALS: BMI 23.9
--- NOTE | 2019-12-24 23:52 | HP ---
COWS - Scale Resting Pulse: 0= UT 80 or Below Sweatin= Chills/Flushing Restless Observation: 3= Extraneous Movement Pupil Size: 0= Normal to Room Light Bone or Joint Aches: 2= Severe Diffuse Aches Runny Nose/ Eye Tearin= None GI Upset > 30mins: 2= Nausea/Diarrhea Tremor Observation: 0= None Yawning Observation: 0= None Anxiety or Irritability: 2=Irritable/Anxious Goose Flesh Skin: 0=Smooth Skin COWS Score: 10 CIWA Score - Admission Criteria OASAS Guidelines: Admission for Medically Managed Detox: Requires at least one of the followin. CIWA greater than 12 2. Seizures within the past 24 hours 3. Delirium tremens within the past 24 hours 4. Hallucinations within the past 24 hours 5. Acute intervention needed for co occurring medical disorder 6. Acute intervention needed for co occurring psychiatric disorder 7. Severe withdrawal that cannot be handled at a lower level of care (continued vomiting, continued diarrhea, abnormal vital signs) requiring intravenous medication and/or fluids 8. Admitting History and Physical - Smoking History Smoking history: Current every day smoker Have you smoked in the past 12 months: Yes Aproximately how many cigarettes per day: 10 - Alcohol/Substance Use Hx Alcohol Use: No Admission ROS BHS - HPI Allergies/Adverse Reactions: Allergies Allergy/AdvReac Type Severity Reaction Status Date / Time No Known Allergies Allergy Verified 12/24/19 23:22 History of Present Illness: 29 y.o. male requesting detox from heroin use , 1/2 gr-1 gr /day , latest use today @ noon IV in UE , denies OD . cocaine : 100 $ IV in UE PMHX : asthma , SAD , latest psych admission 1 yr ago , denies SI / HI . tobacco : 1/2 ppd Exam Limitations: Clinical Condition - Review of Systems Constitutional: Loss of Appetite EENT: reports: No Symptoms Reported Respiratory: reports: No Symptoms reported Cardiac: reports: No Symptoms Reported GI: reports: Diarrhea, Poor Appetite : reports: No Symptoms Reported Musculoskeletal: reports: Back Pain, Muscle Pain Integumentary: reports: See HPI Neuro: reports: No Symptoms reported Endocrine: reports: No Symptoms Reported Hematology: reports: No Symptoms Reported Psychiatric: reports: Orientated x3, Anxious Patient History - Patient Medical History Hx Anemia: No Hx Asthma: Yes Hx Chronic Obstructive Pulmonary Disease (COPD): No Hx Cancer: No Hx Cardiac Disorders: No Hx Congestive Heart Failure: No Hx Hypertension: No Hx Hypercholesterolemia: No Hx Pacemaker: No HX Cerebrovascular Accident: No Hx Seizures: No Hx Dementia: No Hx Diabetes: No Hx Gastrointestinal Disorders: No Hx Liver Disease: No Hx Genitourinary Disorders: No Hx Sexually Transmitted Disorders: No Hx Renal Disease (ESRD): No Hx Thyroid Disease: No Hx Human Immunodeficiency Virus (HIV): No Hx Hepatitis C: No Hx Depression: No Hx Suicide Attempt: No Hx Bipolar Disorder: No Hx Schizophrenia: No - Patient Surgical History Past Surgical History: No Hx Neurologic Surgery: No Hx Cataract Extraction: No Hx Cardiac Surgery: No Hx Lung Surgery: No Hx Breast Surgery: No Hx Breast Biopsy: No Hx Abdominal Surgery: No Hx Appendectomy: No Hx Cholecystectomy: No Hx Genitourinary Surgery: No Hx Section: No Hx Orthopedic Surgery: No Anesthesia Reaction: No - PPD History Date: 03/02/15 - Smoking Cessation Smoking history: Current every day smoker Have you smoked in the past 12 months: Yes Aproximately how many cigarettes per day: 10 Hx Chewing Tobacco Use: No Initiated information on smoking cessation: Yes 'Breaking Loose' booklet given: 12/25/19 - Substances abused Heroin Substance route: Injection Frequency: Daily Amount used: 0.5 gm Age of first use: 16 Date of last use: 12/24/19 Cocaine Substance route: Smoking Frequency: Daily Amount used: $100 worth Age of first use: 15 Date of last use: 12/24/19 Admission Physical Exam BHS - Vital Signs Vital Signs: Vital Signs - 24 hr 12/24/19 23:24 Temperature 98.1 F Pulse Rate 71 Respiratory 18 Rate Blood Pressure 112/65 - Physical General Appearance: Yes: Disheveled, Mild Distress, Anxious HEENTM: Yes: EOMI, Hearing grossly Normal, Normocephalic, Normal Voice Respiratory: Yes: Chest Non-Tender, Lungs Clear, Normal Breath Sounds, No Respiratory Distress, No Accessory Muscle Use Neck: Yes: No masses,lesions,Nodules, Trachea in good position Cardiology: Yes: Regular Rhythm, Regular Rate, S1, S2 Abdominal: Yes: Non Tender, Soft Musculoskeletal: Yes: Gait Steady Extremities: Yes: Normal Range of Motion, Non-Tender Neurological: Yes: Fully Oriented, Alert Integumentary: Yes: Warm - Diagnostic (1) Cocaine abuse Current Visit: Yes Status: Chronic (2) Opioid dependence with withdrawal Current Visit: Yes Status: Chronic Comment: COWS Breathalyzer - Breathalyzer Breathalyzer: 0 Inpatient Rehab Admission - Rehab Decision to Admit Inpatient rehab admission?: No
--- OUTSIDE RECORDS SUMMARY | 2019-12-24 23:55 | XMS ---
:1990 Author Organization [facility] RHIO Care Team Providers Name Role Phone [...] is protected by Article 27-F of the [facility] Public Health law. If you continue you may haveaccess to information: Regarding HIV / AIDS; Provided by facilities licensed or operated by the [facility] Office of Mental Health; or Provided by the [facility] Office for People With Developmental Disabilities. If such information is present, then the following [facility] mandated warning applies: This information has been [...] law may result in a fine or senior living sentence or both. A general authorization for the release of medical or other information is NOT sufficient authorization for further disclosure. Encounters Encounter Providers Location Date Indications Data Source(s ) Inpatient Attender: HUNG BAKER-1D 01/23/2019 [facility] 12:33:00 PM EDT [facility] 10:30:00 PM EDT Patient discharged. Outpatient [facility] 01/23/2019 10:57:00 AM EDT - 019 [facility] 01:54:00 PM EDT Patient discharged. Medications Medication Brand Start Product Dose Route Administrative Pharmacy [facility] Indications Reaction Description Data Name Date Form [...] type bender SELF PAY SP INSURANCE [facility] [id number] HEALTHPLUS 72 SELF PAY 0000 Self 0000 MEDICAID INP [id number] Self [id number] K REHAB [facility] EMPIRE [id number] Self [id number] [facility] [id number] HEALTHPLUS 72 Problems, Conditions, and Diagnoses Code Display Name Description Problem Type Effective Data Sour ce(s) Dates F104.30 Opioid dependence, Opioid dependence, Diagnosis 9 [facility] uncomplicated uncomplicated 12:48:00 PM Hospita l EDT Vital Signs ID Date Data Source UNK Name Value Range Interpretation Code Description Data Source(s) Diastolic blood 95 mmHg 95 mmHg [facility] Systolic blood 148 mmHg 148 mmHg [facility] Respiratory rate 18 bpm 18 bpm [facility] Heart rate 114 bpm 114 bpm [facility] Body temperature 97.9 Fahrenheit 97.9 [facility] Diastolic blood 82 mmHg 82 mmHg [facility] Systolic blood 135 mmHg 135 mmHg [facility] Respiratory rate 18 bpm 18 bpm [facility] Heart rate 76 bpm 76 bpm [facility] Diastolic blood 82 mmHg 82 mmHg [facility] Systolic blood 135 mmHg 135 mmHg [facility] Respiratory rate 18 bpm 18 bpm [facility] Heart rate 76 bpm 76 bpm [facility] Body temperature 97.9 Fahrenheit 97.9 [facility] Diastolic blood 89 mmHg 89 mmHg [facility] Systolic blood 137 mmHg 137 mmHg [facility] Respiratory rate 18 bpm 18 bpm [facility] Heart rate 80 bpm 80 bpm [facility]
[2019-12-24] MEDS ORDERED: MAGNESIUM CITRATE 300 ML BOTTLE PO PRN (23:58)
[2019-12-24] MEDS ORDERED: MELATONIN 5 MG TABLETS PO PRN (23:58)
[2019-12-24] MEDS ORDERED: NICOTINE POLACRILEX 2 MG GUM BUC PRN (23:58)
[2019-12-24] MEDS ORDERED: ACETAMINOPHEN 325 MG TABLET (FP) PO PRN ×2 (23:58)
[2019-12-24] MEDS ORDERED: MENTHOL/PHENOL 1 EACH UD MM PRN (23:58)
[2019-12-24] MEDS ORDERED: hydrOXYzine PAMOATE 25 MG CAPSULE (FP) PO PRN (23:58)
[2019-12-24] MEDS ORDERED: MAG HYDROX/AL HYDROX/SIMETH 30 ML UNIT-DOSE CUP PO PRN (23:58)
[2019-12-24] MEDS ORDERED: BISMUTH SUBSALICYLATE 524 MG/30 ML UD PO PRN (23:58)
[2019-12-24] MEDS ORDERED: IBUPROFEN 400 MG TABLET (FP) PO PRN (23:58)
[2019-12-24] MEDS ORDERED: MAGNESIUM HYDROX 2400MG/30ML ORAL SUSPENSION 30 ML CUP PO PRN (23:58)
[2019-12-24] MEDS ORDERED: METHOCARBAMOL 500 MG TABLET PO PRN (23:58)
[2019-12-25] MEDS ORDERED: METHADONE HCL 10 MG TABLET (FOR DETOX USE ONLY) PO ONE ×2 (00:12→10:00)
[2019-12-25] MEDS ORDERED: cloNIDine HCL 0.1 MG TABLET PO PRN (00:12)
[2019-12-25 00:57] VITALS: BP 149/91; PULSE 60; TEMP 97.8
--- NOTE | 2019-12-25 01:32 | DS ---
[facility] Detox Discharge Summary Admission Date: 12/24/19 - History Additional Comments: informed by nursing that pt walked off the unit escorted by security . - Physical Exam Results Vital Signs: Vital Signs Temperature 97.8 F 12/25/19 00:56 Pulse Rate 60 12/25/19 00:56 Respiratory Rate 18 12/25/19 00:56 Blood Pressure 149/91 12/25/19 00:56 O2 Sat by Pulse Oximetry (%) 100 12/25/19 00:56 - Medication Discharge Medications: Ambulatory Orders Risperidone [Risperdal] 2 mg PO HS 02/28/15 Benztropine Mesylate [Cogentin -] 1 mg PO BID #60 tablet 03/24/15 - Diagnosis (1) Cocaine abuse Status: Chronic (2) Opioid dependence with withdrawal Status: Chronic - AMA Did Patient Leave Against Medical Advice: Yes
[2019-12-25] MEDS ORDERED: NICOTINE 14 MG/24 HOURS TOPICAL PATCH TD SCH (10:00)
[2019-12-25] MEDS ORDERED: PRENATAL VITAMINS W/ FOLIC ACID TABLET (FP) PO SCH (10:00)
[2019-12-25] MEDS ORDERED: THIAMINE HCL 100 MG TABLET (FP) PO SCH (22:00)
[2019-12-27] MEDS ORDERED: METHADONE HCL 10 MG TABLET (FOR DETOX USE ONLY) PO ONE (10:00)
[2019-12-28] MEDS ORDERED: METHADONE HCL 10 MG TABLET (FOR DETOX USE ONLY) PO ONE (10:00)
== END 2019-12-25 01:30 | disposition left against medical advice (07) | DRG 770 ==
LOC: YASAS 23:06 → Y6N 23:51
PROVIDERS: ADMIT Allergy & Immunology; ATTEND Allergy & Immunology
PROC: HZ2ZZZZ Detoxification Services for Substance Abuse Treatment (ICD-10-PCS; principal; 2019-12-24)
DX: F11.23 Opioid dependence with withdrawal (principal); F14.20 Cocaine dependence, uncomplicated; F17.210 Nicotine dependence, cigarettes, uncomplicated; F25.9 Schizoaffective disorder, unspecified; J45.909 Unspecified asthma, uncomplicated
CPT/HCPCS: J0735; U0003